=== PATIENT | male | born 1990 | race Caucasian/White ===

== ENCOUNTER 2022-08-22 19:51 | Emergency (ER) | payer OTHER ==
[~2022-08-22] VITALS: Ht 185.4 cm; Wt 86.2 kg
[2022-08-22] MEDS ORDERED: CYCLOBENZAPRINE10 MG PO (22:54)
[2022-08-22] MEDS ORDERED: MELOXICAM15 MG PO (22:54)
== END 2022-08-22 23:26 | disposition home or self-care (01) ==
LOC: ED 19:51
DX: S16.1XXA Strain of muscle, fascia and tendon at neck level, initial encounter (principal); S29.012A Strain of muscle and tendon of back wall of thorax, initial encounter; S46.911A Strain of unspecified muscle, fascia and tendon at shoulder and upper arm level, right arm, initial encounter; V49.49XA Driver injured in collision with other motor vehicles in traffic accident, initial encounter
CPT/HCPCS: 72040; 72070; 73030; 73560; 96372; 99284-25; A9270; J1885; J3360

== ENCOUNTER 2022-09-03 15:37 | Emergency (ER) | payer OTHER ==
[~2022-09-03] VITALS: Ht 185.4 cm; Wt 86.2 kg
[~2022-09-03 15:37] MED LIST: CYCLOBENZAPRINE10 MG PO; MELOXICAM15 MG PO
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
== END 2022-09-03 16:49 | disposition home or self-care (01) ==
LOC: ED 15:37
DX: S16.1XXD Strain of muscle, fascia and tendon at neck level, subsequent encounter (principal); S29.012D Strain of muscle and tendon of back wall of thorax, subsequent encounter; X58.XXXD Exposure to other specified factors, subsequent encounter
CPT/HCPCS: 99283